=== PATIENT | female | born 1965 | race Two or more races ===

== ENCOUNTER 2023-06-10 20:54 | Observation (INO) | payer OTHER ==
[2023-06-10 21:27] VITALS: BMI 22.3
[2023-06-10 23:09] LABS: BASO % 0.4 % (0-2.0); HEMOGLOBIN 12.4 GM/dL (10.7-15.3); LYMPH % 38.5 % (8-40); MCH 30.7 pg (25.7-33.7); MCHC 33.5 g/dl (32.0-36.0); MEAN CELL VOLUME 91.7 fl (80-96); NEUT % 51.1 % (42.8-82.8); PLATELET COUNT 348 10^3/uL (134-434); RBC 4.04 M/mm3 (3.60-5.2); WHITE BLOOD COUNT 8.1 K/mm3 (4.0-10.0)
[2023-06-10 23:28] LABS: POTASSIUM 4.1 mmol/L (3.5-5.1)
[2023-06-10 23:32] LABS: ALBUMIN 4.3 g/dl (3.4-5.0); BLOOD UREA NITROGEN 10.8 mg/dL (7-18); MAGNESIUM 2.4 mg/dL (1.8-2.4)
[2023-06-10 23:35] LABS: CREATININE 0.9 mg/dL (0.55-1.3); PHOSPHOROUS 3.6 mg/dL (2.5-4.9)
[2023-06-10 23:36] LABS: BILIRUBIN,TOTAL 0.5 mg/dL (0.2-1)
[2023-06-10 23:37] LABS: TOT PROT 8.4 g/dl (6.4-8.2)
[2023-06-11 01:51] LABS: EPI CELLS 5 /uL (0-25.1); HYALINE CASTS 0 /uL (0-3.1); PH,URINE 5.5 (5.0-8.0); URINE APPEARANCE CLEAR; URINE BACTERIA 4180 /uL (0-1359); URINE BILIRUBIN NEGATIVE (NEGATIVE); URINE COLOR YELLOW; URINE GLUCOSE (UA) NEGATIVE (NEGATIVE); URINE KETONE NEGATIVE (NEGATIVE); URINE LEUK ESTERASE 1+ (NEGATIVE); URINE NITRITE POSITIVE (NEGATIVE); URINE PROTEIN NEGATIVE (NEGATIVE); URINE RBC 6 /uL (0-23.9); URINE UROBILINOGEN 0.2 mg/dL (0.2-1.0); URINE WBC 41 /uL (0-25.8)
[2023-06-11 05:41] LABS: OPIATES, URI NEGATIVE (NEGATIVE)
[2023-06-11 05:42] LABS: COCAINE, UR NEGATIVE (NEGATIVE); METHADONE, UR NEGATIVE (NEGATIVE); PHENCYCLIDINE,URINE NEGATIVE (NEGATIVE); URINE BENZODIAZEPINES NEGATIVE (NEGATIVE)
[2023-06-11 06:10] LABS: URINE AMPHETAMINES NEGATIVE (NEGATIVE); URINE BARBITURATES NEGATIVE (NEGATIVE)
[2023-06-11 08:36] LABS: BASO % 0.4 % (0-2.0); EOS % 1.3 % (0-4.5); HEMATOCRIT 32.5 % (32.4-45.2); HEMOGLOBIN 11.1 GM/dL (10.7-15.3); LYMPH % 29.4 % (8-40); MCH 31.7 pg (25.7-33.7); MCHC 34.2 g/dl (32.0-36.0); MEAN CELL VOLUME 92.6 fl (80-96); MEAN PLT VOLUME 7.5 fl (7.5-11.1); MONO % 9.4 % (3.8-10.2); NEUT % 59.5 % (42.8-82.8); PLATELET COUNT 283 10^3/uL (134-434); RBC 3.51 M/mm3 (3.60-5.2); RDW 12.7 % (11.6-15.6); WHITE BLOOD COUNT 5.7 K/mm3 (4.0-10.0)
[2023-06-11 08:50] LABS: ALBUMIN 3.5 g/dl (3.4-5.0); BLOOD UREA NITROGEN 10.1 mg/dL (7-18); CALCIUM 9.2 mg/dL (8.5-10.1); MAGNESIUM 2.2 mg/dL (1.8-2.4)
[2023-06-11 08:53] LABS: CREATININE 0.8 mg/dL (0.55-1.3)
[2023-06-11 08:54] LABS: PHOSPHOROUS 3.6 mg/dL (2.5-4.9)
[2023-06-11 08:55] LABS: BILIRUBIN,TOTAL 0.6 mg/dL (0.2-1); TOT PROT 6.8 g/dl (6.4-8.2)
[2023-06-11 08:56] LABS: CHOLESTEROL 182 mg/dL (50-200)
[2023-06-11 08:57] LABS: LDL CHOLESTEROL (ONLY SJRH) 87 mg/dL (5-100)
[2023-06-11 08:58] LABS: HDL CHOLESTEROL 85 mg/dL (40-60); N-TERMINAL BNP 66.8 pg/ml (5-125)
[2023-06-11] MEDS ORDERED: ENOXAPARIN NA (PORCINE) 40 MG/0.4 ML DISP.SYRIN SQ ONE (09:37)
[2023-06-11] MEDS ORDERED: CEFTRIAXONE 1 GM/50 ML BAG ONE (09:38)
[2023-06-11] MEDS: ENOXAPARIN NA (PORCINE) 40 MG/0.4 ML DISP.SYRIN SQ SCH (09:49)
[2023-06-11] MEDS ORDERED: CEFTRIAXONE 1 GM in DEXTROSE 5%-WATER - 50 ML IVPB SCH (10:00)
[2023-06-11] MEDS ORDERED: metoPROLOL SUCCINATE 25 MG TAB.SR.24H (FP) PO ONE (17:20)
[2023-06-11] MEDS ORDERED: ASPIRIN 81 MG CHEWABLE TABLETS ONE (17:20)
[2023-06-11] MEDS: ASPIRIN COATED 81 MG TABLET.EC PO SCH (17:31)
[2023-06-11] MEDS: metoPROLOL SUCCINATE 25 MG TAB.SR.24H (FP) PO SCH (17:31)
[2023-06-11] MEDS ORDERED: ATORVASTATIN CA 40 MG TABLET (FP) PO SCH (22:00)
[2023-06-11] MEDS ORDERED: ATORVASTATIN CA 40 MG TABLET (FP) ONE (22:49)
[2023-06-12] MEDS: ASPIRIN COATED 81 MG TABLET.EC PO SCH (09:09)
[2023-06-12] MEDS: metoPROLOL SUCCINATE 25 MG TAB.SR.24H (FP) PO SCH (09:09)
[2023-06-12] MEDS: ENOXAPARIN NA (PORCINE) 40 MG/0.4 ML DISP.SYRIN SQ SCH (09:09)
[2023-06-12 16:05] VITALS: BP 147/74; PULSE 80; RESP 18; TEMP 97
== END 2023-06-12 16:07 | disposition short-term general hospital (02) ==
LOC: JER 20:54 → JERBED 06-11 00:54
PROVIDERS: ADMIT Internal Medicine; ATTEND Internal Medicine
DX: R07.9 Chest pain, unspecified (principal); R82.81 Pyuria; R00.2 Palpitations; R06.00 Dyspnea, unspecified; I51.9 Heart disease, unspecified; I44.7 Left bundle-branch block, unspecified; F41.9 Anxiety disorder, unspecified
CPT/HCPCS: 0241U-QW; 36415; 71046-TC-FY; 80053; 80061; 80307; 81003; 83735; 83880; 84100; 84443; 84484; 85025; 87086; 87186; 93005; 93010; 93306-TC; 96365; 99285-25; G0378